=== PATIENT | female | born 1950 | race Caucasian/White ===

== ENCOUNTER → 2017-11-17 | Outpatient (CLI) | payer MEDICARE ==
[2017-11-17 16:15] LABS: Calcium 8.5 mg/dL (8.4-10.2)
[2017-11-17 16:32] LABS: T4, Free (Free Thyroxine) 1.81 ng/dL (0.78-2.19)
[2017-11-18 07:15] LABS: Vitamin D 25 Hydroxy 42.5 ng/mL (30.0-100.0)
[2017-11-18 08:15] LABS: Thyroglobulin <0.20 ng/mL (1.60-59.90)
== END ==
LOC: LABWHC1 15:37
PROVIDERS: ATTEND Internal Medicine Endocrinology, Diabetes & Metabolism
DX: C73 Malignant neoplasm of thyroid gland (principal); E89.0 Postprocedural hypothyroidism; E55.9 Vitamin D deficiency, unspecified; M89.9 Disorder of bone, unspecified
CPT/HCPCS: 36415; 82306; 82310; 84432; 84439; 84443; 86800

== ENCOUNTER → 2018-03-18 | Outpatient (CLI) | payer MEDICARE ==
[2018-03-18 19:20] LABS: T4, Free (Free Thyroxine) 1.6 ng/dL (0.80-1.80)
== END | disposition home or self-care (01) ==
LOC: LABWHC1 14:51
PROVIDERS: ATTEND Internal Medicine Endocrinology, Diabetes & Metabolism
DX: C73 Malignant neoplasm of thyroid gland (principal)
CPT/HCPCS: 36415; 84439; 84443

== ENCOUNTER → 2018-07-29 | Outpatient (CLI) | payer MEDICARE, OTHER ==
[2018-07-29 22:55] LABS: T4, Free (Free Thyroxine) 1.6 ng/dL (0.80-1.80)
[2018-07-30 00:35] LABS: Thyroglobulin <0.20 ng/mL (1.60-59.90)
== END | disposition home or self-care (01) ==
LOC: LABWHC1 15:10
PROVIDERS: ATTEND Internal Medicine Endocrinology, Diabetes & Metabolism
DX: E89.0 Postprocedural hypothyroidism (principal); E55.9 Vitamin D deficiency, unspecified; M79.10 Myalgia, unspecified site
CPT/HCPCS: 36415; 84432; 84439; 84443; 86800

== ENCOUNTER → 2019-01-24 | Outpatient (CLI) | payer MEDICARE, OTHER ==
[2019-01-24 19:14] LABS: T4, Free (Free Thyroxine) 1.3 ng/dL (0.80-1.80)
== END | disposition home or self-care (01) ==
LOC: LABWHC1 12:50
PROVIDERS: ATTEND Internal Medicine Endocrinology, Diabetes & Metabolism
DX: E89.0 Postprocedural hypothyroidism (principal)
CPT/HCPCS: 36415; 84439; 84443

== ENCOUNTER → 2019-01-25 | Day surgery (SDC) | payer MEDICARE, OTHER ==
[2019-01-25 14:11] VITALS: RESP 16; BMI 28.3
[2019-01-25 14:53] VITALS: BP 122/79; PULSE 76; TEMP 98.2
--- NOTE | 2019-01-25 15:33 | MM ---
EXAMINATION TYPE: MG stereo VAD BX RT DATE OF EXAM: 01/25/2019 COMPARISON: Outside mammogram December 28, 2018 and older studies. CLINICAL HISTORY: Abnormal mammogram. TECHNIQUE: Stereotactic guided core biopsy of right breast with clip placement and follow-up diagnost ic two-view mammogram.. FINDINGS: The procedure of stereotactic guided core biopsy was explained to the patient. Benefits, a lternatives, and risks were discussed. An informed consent was then obtained. [facility] pathway for biopsy was chosen. [facility] pathway was lateral approach. I performed the localization, then surgeon, Dr. Hudson performed the remainder of the procedure. A vacuum assisted b iopsy gun was used to obtain multiple core samples. The patient tolerated the procedure well without any immediate complication. The patient was kept in the radiology department for short stay after the procedure and then discharged home in stable condi tion. Targeted calcifications are identified in specimen mammogram. Post biopsy mammogram shows the clip to appear in satisfactory position relative to the targeted area of concern on the preprocedure images. Small postprocedure hematoma noted at the biopsy site. IMPRESSION: SUCCESSFUL, UNCOMPLICATED STEREOTACTIC GUIDED CORE BIOPSY OF AREA OF CONCERN IN THE RIGHT BREAST, FUL L PATHOLOGY RESULTS TO FOLLOW. Intermediate index of suspicion noted at time of procedure
--- NOTE | 2019-01-25 23:39 | OP ---
OPERATIVE REPORT DATE OF SERVICE: 01/25/2019 PREOPERATIVE DIAGNOSIS: Abnormal mammogram, right breast. POSTOPERATIVE DIAGNOSIS: Abnormal mammogram, right breast. PROCEDURE: Right stereotactic breast biopsy with marker placement. ANESTHESIA: 1% lidocaine with epinephrine. SURGEON: Dr. Fabi Hudson. SIGNS AND PROCEDURE: Breanna is a 69-year-old female who had a mammogram done showing a small cluster of calcifications, for which stereotactic biopsy had been recommended. She is taken to the stereotactic suite where the area of concern is identified and marked by the radiologist. The breast is then prepped. Local anesthetic is instilled into the skin and breast tissue. A small skin lenora is made. The needle was advanced to the appropriate depth. Pre-fire films were obtained. Post-fire films were not obtained, as the area of calcification was small and would be obscured by the tip of the needle. The needle was fired and then multiple vacuum-assisted automated cores were obtained. Mammography of the specimen did show that microcalcifications had been removed. The tissue marker is then placed and the needle and sleeve are withdrawn. Pressure was held. There was some persistent oozing from the skin. Therefore the skin was sutured using 3-0 silk suture. That appeared to control the bleeding, with no underlying hematoma developing. A dressing was applied. She was given aftercare instructions. I will see her in the office on for pathology. MMODL / IJN: [id number] /
== END | disposition home or self-care (01) ==
LOC: RADMAMWWP 01-24 14:27
PROVIDERS: ATTEND Surgery
DX: N62 Hypertrophy of breast (principal); R92.1 Mammographic calcification found on diagnostic imaging of breast
CPT/HCPCS: 88305; 19081; A4648

== ENCOUNTER → 2019-10-12 | Outpatient (CLI) | payer MEDICARE ==
--- NOTE | 2019-10-13 09:07 | MM ---
Reason for exam: follow-up at short interval from prior study. Last mammogram was performed 14 years and 10 months ago. History: Patient is postmenopausal and has history of high-risk lesion on a previous biopsy at age 50. Benign MG stereo VAD BX RT of the right breast, January 25, 2019. Benign excisional biopsy of the right breast, 1979. Physical Findings: Nurse did not find any significant physical abnormalities on exam. MG Diagnostic Mammo RT w CAD CC and MLO view(s) were taken of the right breast. Prior study comparison: January 25, 2019, mammogram. December 26, 2017, mammogram. The breast tissue is heterogeneously dense. This may lower the sensitivity of mammography. Previous mammotome biopsy in the right breast. There is chronic nodularity in the right breast. Asymmetric breast tissue on the right breast. No distinct lesion at additional views. These results were verbally communicated with the patient and result sheet given to the patient on 10/12/19. ASSESSMENT: Benign, BI-RAD 2 RECOMMENDATION: Routine screening mammogram of both breasts in 4 months. Back on schedule.
== END | disposition home or self-care (01) ==
LOC: RADMAMWWP 11:05
PROVIDERS: ATTEND Family Medicine
DX: R92.8 Other abnormal and inconclusive findings on diagnostic imaging of breast (principal)
CPT/HCPCS: 77065

== ENCOUNTER → 2020-01-31 | Outpatient (CLI) | payer MEDICARE ==
[2020-01-31 21:07] LABS: T4, Free (Free Thyroxine) 1.4 ng/dL (0.80-1.80)
== END | disposition home or self-care (01) ==
LOC: LABWHC1 14:12
PROVIDERS: ATTEND Internal Medicine
DX: C73 Malignant neoplasm of thyroid gland (principal); E89.0 Postprocedural hypothyroidism; E55.9 Vitamin D deficiency, unspecified
CPT/HCPCS: 36415; 82306; 84432; 84439; 84443; 86800

== ENCOUNTER → 2020-05-24 | Outpatient (CLI) | payer MEDICARE ==
--- NOTE | 2020-05-25 13:43 | MM ---
Reason for exam: screening (asymptomatic). Last mammogram was performed 7 months ago. History: Patient is postmenopausal and has history of high-risk lesion on a previous biopsy at age 50. Benign MG stereo VAD BX RT of the right breast, January 25, 2019. Benign excisional biopsy of the right breast, 1979. Physical Findings: A clinical breast exam by your physician is recommended on an annual basis and results should be correlated with mammographic findings. MG 3D Screening Mammo W/Cad Bilateral CC and MLO view(s) were taken. Prior study comparison: October 12, 2019, right breast MG diagnostic mammo RT w CAD. January 25, 2019, mammogram. The breast tissue is heterogeneously dense. This may lower the sensitivity of mammography. Finding: There is an obscured oval mass in the upper quadrant of the left breast MLO 26/52. Previous mammotome biopsy in the right breast. There is a chronic nodularity in the left breast. New finding and more defined since October 12, 2019 and January 25, 2019. ASSESSMENT: Incomplete: need additional imaging evaluation, BI-RAD 0 RECOMMENDATION: Special view mammogram of the left breast. If lesion persists on supplemental views, image directed ultrasound is recommended. [facility] will attempt to contact patient to return for supplemental views and ultrasound if indicated.
== END | disposition home or self-care (01) ==
LOC: RADMAMWWP 13:55
PROVIDERS: ATTEND Family Medicine
DX: Z12.31 Encounter for screening mammogram for malignant neoplasm of breast (principal)
CPT/HCPCS: 77063; 77067

== ENCOUNTER → 2020-05-24 | Outpatient (CLI) | payer MEDICARE ==
--- NOTE | 2020-05-24 14:15 | CT ---
EXAMINATION TYPE: CT abdomen pelvis w con DATE OF EXAM: 05/24/2020 COMPARISON: NONE HISTORY: 70-year-old female Generalized abdominal pain. Elevated lipase and amylase. TECHNIQUE: Contiguous axial scanning of the abdomen and pelvis following administration of 100 ml Iso zully 300 IV contrast. Delayed images through the kidneys and coronal/sagittal reconstructions perform ed. CT DLP: 693.4 mGycm Automated exposure control for dose reduction was used. FINDINGS: Heart normal size without pericardial effusion. Strandy atelectasis inferior lingula. No pleural effu michael. Moderate sized hernia. Numerous suspicious hypodense liver lesions measuring up to 2.1 cm. Fluid attenuating lesion at the l eft hepatic dome measures 1.8 cm and is suspected to represent a cyst. Numerous additional lesions or suspicious. Background heterogeneous enhancement of the liver. No abnormal gallbladder distention. Adrenal glands, spleen appear within normal limits. Extra renal pelvis on the right. Medial right renal cyst measures 2.8 cm. Additional scattered smalle r hypodensities in the left kidney measuring up to 8 mm are too small for accurate CT characterizatio n, likely tiny cysts. There is a poorly defined mass centered within the head of the pancreas measuring approximately 3.5 c m wide by 3.1 cm AP by 5.3 cm craniocaudal, refer to axial image 24 and coronal image 37. There is co rresponding atrophy of the more proximal pancreas with dilatation of the main pancreatic duct. The lower main portal vein and portal venous confluence is encased and extrinsically compressed. The mass abuts the anterior margin of the common hepatic artery. No dilated small bowel, free fluid, or free air. Ill-defined soft tissue in the left periaortic region measures 2.5 x 1.1 cm just below the level of t he left renal artery, axial image 32. Some stranding edema tracks down the retroperitoneum. Normal appendix. Moderate stool in the right side of the abdomen. Sigmoid diverticulosis without sheree colonic inflammatory change. Bladder is urine distended. Uterus surgically absent. Neither ovary is visualized. No abnormal fluid collection the pelvis or pelvic lymphadenopathy. Bones: Mild degenerative change of the hips. Degenerated levoconvex curvature of the lumbar spine. Va scular disease. Grade 1 retrolisthesis L2-L3 and L3-L4. IMPRESSION: 1. PANCREATIC HEAD MASS SUGGESTING ADENOCARCINOMA ESTIMATED TO MEASURE 5.3 CM. THERE IS EXTRINSIC COM PRESSION NARROWING THE LOWER MAIN PORTAL VEIN AND PORTAL VENOUS CONFLUENCE SECONDARY TO TUMOR ENCASEM ENT. THE MASS ABUTS THE ANTERIOR MARGIN OF THE COMMON HEPATIC ARTERY WITHOUT EVIDENT ARTERIAL ENCASEM ENT. 2. METASTATIC DISEASE CHARACTERIZED BY MULTIPLE HYPOVASCULAR HEPATIC LESIONS MEASURING UP TO 2.1 CM. SUSPICIOUS ILL-DEFINED SOFT TISSUE/LYMPHADENOPATHY IN THE LEFT PERIAORTIC REGION MEASURES 2.5 X 1.1 C M. 3. MODERATE-SIZED HIATAL HERNIA, SIGMOID DIVERTICULOSIS, AND DEGENERATED LEVOCONVEX SCOLIOTIC CURVATU RE OF THE LUMBAR SPINE.
== END | disposition home or self-care (01) ==
LOC: RADCTMAIN 11:39
PROVIDERS: ATTEND Family Medicine
DX: K86.89 Other specified diseases of pancreas (principal); K76.89 Other specified diseases of liver; K57.30 Diverticulosis of large intestine without perforation or abscess without bleeding; K44.9 Diaphragmatic hernia without obstruction or gangrene; C78.7 Secondary malignant neoplasm of liver and intrahepatic bile duct
CPT/HCPCS: 74177; Q9967 ×2

== ENCOUNTER → 2020-05-30 | Day surgery (SDC) | payer MEDICARE ==
[2020-05-30 08:38] VITALS: RESP 16; TEMP 97.8
[2020-05-30 08:44] LABS: Mean Platelet Volume 6.9; Platelet Count 317 k/uL (150-450)
[2020-05-30 08:57] LABS: INR 0.9 (<1.2); Prothrombin Time 10.1 sec (9.0-12.0)
--- NOTE | 2020-05-30 13:18 | US ---
EXAMINATION TYPE: US biopsy liver DATE OF EXAM: 05/30/2020 HISTORY: Multiple liver masses, pancreatic mass. FINDINGS: Maximal barrier technique was utilized. Hand hygiene achieved with soap and water and alco hol-based hand rub. The skin overlying a suitable path to the patient's right lobe liver mass was loc alized with ultrasound and the overlying skin prepped and draped. Ultrasound was utilized with steri le technique. Lidocaine was used for local anesthesia. A skin lenora was made with a scalpel. An 18- gauge needle was advanced under direct ultrasound guidance and core specimen obtained of the mass. S ghanshyamn submitted in formalin to Pathology. Following the procedure, hemostasis achieved and the pat ient is discharged in stable condition without complication. IMPRESSION:STATUS POST ULTRASOUND GUIDED CORE BIOPSY OF right lobe liver MASS, PATHOLOGY IS PENDING. THIS PROCEDURE IS PERFORMED BY THE UNDERSIGNED.
[2020-05-30 13:35] VITALS: BP 117/72; PULSE 86
== END ==
LOC: RADPROMAIN 07:54
PROVIDERS: ATTEND Internal Medicine Hematology & Oncology
DX: C78.7 Secondary malignant neoplasm of liver and intrahepatic bile duct (principal)
CPT/HCPCS: 36415; 47000; 76942; 85049; 85610; 88307; 88341; 88342

== ENCOUNTER → 2020-06-07 | Outpatient (CLI) | payer MEDICARE ==
[2020-06-07 17:37] LABS: African American GFR (CKD) >90 (>60 ml/min/1.73 sqM); Blood Urea Nitrogen 13 mg/dL (7-17); Non-African American GFR(CKD) 90 (>60 ml/min/1.73 sqM)
--- NOTE | 2020-06-08 07:31 | CT ---
EXAMINATION TYPE: CT chest w con DATE OF EXAM: 06/07/2020 COMPARISON: CT abdomen and pelvis May 24, 2020 HISTORY: Recent diagnosis of pancreatic cancer. CT DLP: 218.2 mGycm. Automated Exposure Control for Dose Reduction was Utilized. TECHNIQUE: CT scan of the thorax is performed following with IV Contrast, patient injected with 100m l mL of Isovue 300. FINDINGS: LUNGS: Mild bibasilar linear scarring and/or atelectasis just above diaphragm. No suspicious focal pu lmonary nodules or masses. Mild scattered parenchymal scarring in the right upper lung periphery. No pleural effusion or pneumothorax seen bilaterally. MEDIASTINUM: There is a single suspicious 1.9 x 1.4 cm soft tissue nodule anterior to the pulmonary a rtery and ascending aorta echo much 25.. No pericardial effusion is seen. Descending aorta measure s up to 3.4 cm in diameter. Thyroid small in size or atrophic, not well seen. No cardiomegaly. OTHER: Small slight hiatal hernia redemonstrated. Visualized liver is enlarged with heterogeneous hyp odense masses consistent with known metastatic disease. Enhancing poorly defined pancreatic head mass or neoplasm causing pancreatic ductal dilatation is also redemonstrated. Underlying scoliosis in the thoracic spine is present. Loss of normal thoracic curvature on sagittal images. IMPRESSION: Single suspicious 1.9 x 1.4 cm Mediastinal mass could reflect metastatic lesion. No suspi cious pulmonary nodules or masses. Redemonstration of known pancreatic neoplasm with hepatic metasta tic disease.
== END | disposition home or self-care (01) ==
LOC: RADCTMAIN 17:08
PROVIDERS: ATTEND Internal Medicine Hematology & Oncology
DX: C25.9 Malignant neoplasm of pancreas, unspecified (principal); R68.89 Other general symptoms and signs; C78.7 Secondary malignant neoplasm of liver and intrahepatic bile duct; R22.2 Localized swelling, mass and lump, trunk
CPT/HCPCS: 82565; 84520; 71260; 36415; Q9967

== ENCOUNTER → 2020-07-18 | Outpatient (CLI) | payer MEDICARE ==
--- NOTE | 2020-07-18 15:17 | MR ---
EXAMINATION TYPE: MR brain wo/w con DATE OF EXAM: 07/18/2020 COMPARISON: NONE HISTORY: Pancreatic cancer, visual disturbances, blurred vision TECHNIQUE: Multiplanar, multisequence images of the brain and brainstem is performed without and with IV contras t, utilizing 7 mL intravenous Gadavist . FINDINGS: Diffusion weighted images demonstrate no evidence of a recent infarct or other diffusion ab normality. There is mild ventricular and sulcal prominence. Occasional T2 hyperintense focus with ro ughly 5-10 tiny scattered lesions and additional T2 hyperintensity periventricular level Midline structures demonstrate normal morphology. The craniocervical junction appears within normal limits. Post contrast images demonstrate no abnormal enhancement. The dural venous sinuses appear pa tent. The visualized sinuses are clear and the globes are intact. IMPRESSION: Mild diffuse cerebral atrophy and mild to minimal chronic small vessel ischemic change. N o enhancing masses to suggest metastatic disease to the brain identified.
== END | disposition home or self-care (01) ==
LOC: RADMRIMAIN 13:54
PROVIDERS: ATTEND Internal Medicine Hematology & Oncology
DX: G31.9 Degenerative disease of nervous system, unspecified (principal); I67.82 Cerebral ischemia; C25.0 Malignant neoplasm of head of pancreas
CPT/HCPCS: 70553; A9585

== ENCOUNTER → 2020-07-26 | Outpatient (CLI) | payer MEDICARE ==
--- NOTE | 2020-07-26 12:45 | CT ---
EXAMINATION TYPE: CT abdomen pelvis w con DATE OF EXAM: 07/26/2020 COMPARISON: HISTORY: 70-year-old female C25.0, Follow up pancreatic cancer. TECHNIQUE: Contiguous axial scanning of the abdomen and pelvis following administration of 100 ml Iso zully 370 IV contrast. Delayed images through the kidneys and coronal/sagittal reconstructions perform ed. CT DLP: 1796 mGycm Automated exposure control for dose reduction was used. FINDINGS: Heart is normal size without pericardial effusion. Partially visualized soft tissue density in the pr evascular space measuring 1.9 cm. Pvdie-gf-sddpfibj left effusion is new. Left basilar atelectasis. There is heterogeneous enhancement of the liver likely reflecting cavernous transformation of the thong n portal vein. Increasing number of numerous liver lesions. The previously seen lesions are either stable or increas ing in size. For example, within the right hepatic dome measuring 2.3 cm versus 2.1 cm, previously. M easuring 3.2 cm and the left liver lobe versus 1.4 cm, previously. Gallbladder mostly collapsed. Adrenal glands and spleen within normal limits. 2.6 cm cyst medial left kidney and extrarenal pelvis on the right. New moderate to severe left-sided hydronephrosis. Delayed excretion of contrast from the left kidney. This seems to be abrupt cut off of the proximal ureter with soft tissue density contiguous with the left periaortic region and left psoas major. Redemonstrated atrophy of the pancreatic body and tail with dilatation of the main pancreatic duct. V ague hypodensity within the pancreatic head estimated at 2.6 x 1.5 cm on coronal image 38 versus 5.3 x 3.5 cm on 05/24/2020 on coronal image 37. No dilated small bowel or free air. There is some edema tracking down the right side of the retroperi toneum. There is also circumferential wall thickening at the ascending colon up to the splenic flexure. Sigmo id diverticulosis. Bladder distended. Uterus surgically absent. Neither ovary clearly delineated. Mod erate pelvic ascites is new. Bones: Mild degenerative change of the hips. Degenerative change right SI joint. Degenerated levoconv ex scoliosis of the lumbar spine. IMPRESSION: 1. THE PATIENT'S VAGUE PANCREATIC HEAD MASS IS ESTIMATED SMALLER AT 2.6 X 1.5 CM (CORONAL IMAGE 38) V ERSUS 5.3 X 3.5 CM ON 05/24/2020 (CORONAL IMAGE 37). 2. REDEMONSTRATED NUMEROUS HEPATIC METASTASES. NEW LESIONS ARE SEEN. PREVIOUS LESIONS ARE EITHER STAB LE OR SLIGHTLY LARGER. 3. 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 THIS RESULTS IN HETEROGENEOUS ENHANCEMENT OF THE LIVER. 4. NEW MODERATE TO SEVERE LEFT-SIDED HYDRONEPHROSIS WITH OBSTRUCTIVE UROPATHY. THERE SEEMS TO BE ABRU PT CUT OFF AT THE PROXIMAL LEFT URETER WITH SOFT TISSUE DENSITY CONTIGUOUS WITH THE LEFT PERIAORTIC R EGION AND LEFT PSOAS MAJOR, POSSIBLY RELATING TO PROGRESSION IN THE RETROPERITONEAL METASTASES HERE. RECOMMEND UROLOGY CONSULTATION. 5. PARTIALLY VISUALIZED 1.9 CM NODULAR SOFT TISSUE IN THE PREVASCULAR SPACE OF THE ANTERIOR MEDIASTIN UM. MEDIASTINAL LYMPHADENOPATHY NOT EXCLUDED. THIS REGION WAS NOT PREVIOUSLY INCLUDED IN THE FIELD-OF -VIEW. 6. CIRCUMFERENTIAL WALL THICKENING OF THE ASCENDING COLON. CORRELATE FOR NONSPECIFIC COLITIS. 7. NEW SMALL TO MODERATE LEFT EFFUSION. NEW MODERATE PELVIC ASCITES.
== END ==
LOC: RADPROMAIN 09:20
PROVIDERS: ATTEND Internal Medicine Hematology & Oncology
DX: K86.9 Disease of pancreas, unspecified (principal); N13.30 Unspecified hydronephrosis; N39.9 Disorder of urinary system, unspecified; R18.8 Other ascites; J90 Pleural effusion, not elsewhere classified
CPT/HCPCS: 82565; 84520; 74177; J1642; Q9967

== ENCOUNTER → 2020-08-13 | Outpatient (CLI) | payer MEDICARE ==
--- NOTE | 2020-08-13 13:43 | US ---
EXAMINATION TYPE: US venous doppler duplex LE DATE OF EXAM: 08/13/2020 1:36 PM COMPARISON: NONE CLINICAL HISTORY: R22.42, R22.41 Bilateral leg swelling, shortness of breath. SIDE PERFORMED: Bilateral TECHNIQUE: The lower extremity deep venous system is examined utilizing real time linear array sonog rosario with graded compression, doppler sonography and color-flow sonography. VESSELS IMAGED: Common Femoral Vein Deep Femoral Vein Greater Saphenous Vein * Femoral Vein Popliteal Vein Small Saphenous Vein * Proximal Calf Veins (* superficial vessels) Right Leg: Negative for DVT Left Leg: Negative for DVT Preliminary results given to Miguelangel. IMPRESSION: Grayscale, color doppler, spectral doppler imaging performed of the deep veins of the lo wer extremities. There is normal flow, compressibility, vascular waveforms.
--- NOTE | 2020-08-13 14:06 | CT ---
EXAMINATION TYPE: CT angio chest DATE OF EXAM: 08/13/2020 COMPARISON: 06/07/2020 HISTORY: Shortness of breath in the past week CT DLP: 191.2 mGycm CONTRAST: CT chest with contrast and 3D reconstruction with MIP imaging is performed with IV Contrast, patient injected with 100 mL of Isovue 370. Contrast-enhanced CT of the chest was performed through the course of the pulmonary arteries with ralph g and mediastinal window settings submitted. 3D reconstruction with MIP imaging was also performed. PULMONARY ARTERIES: There are a few scattered filling defects are noted within the secondary and tert iary branches of the right lung right upper lobe and right lower lobe as well as diffuse tiny scatter ed filling defects within the second and third order branches left lower lobe. No central embolus see n. No saddle component noted. LUNGS: Left basilar pleural effusion. Right lower lobe atelectasis infiltrate. MEDIASTINUM: Thoracic aorta is of normal caliber,however, evaluation is limited given timing of the contrast bolus. If there is concern for thoracic aortic pathology consider JANINE. Correlate clinicall y . The heart is enlarged. No evidence for mediastinal mass. No mediastinal lymph nodes greater than 1cm. HILAR STRUCTURES: No evidence for mass. No hilar lymph nodes greater than 1 cm. UPPER ABDOMEN: Upper abdominal ascites is noted. IMPRESSION: 1. Mild pulmonary embolism is noted bilaterally. No evidence for large central component or saddle e mbolus. 2. Left basilar pleural effusion and basilar atelectatic change.
== END | disposition home or self-care (01) ==
LOC: RADPROMAIN 12:36
PROVIDERS: ATTEND Internal Medicine Hematology & Oncology
DX: I26.99 Other pulmonary embolism without acute cor pulmonale (principal); J90 Pleural effusion, not elsewhere classified
CPT/HCPCS: 82565; 84520; 93970; 71275; J1642; Q9967

== ENCOUNTER → 2020-09-18 | Outpatient (CLI) | payer MEDICARE ==
--- NOTE | 2020-09-18 21:39 | CT ---
EXAMINATION TYPE: CT ChestAbdPelvis w con DATE OF EXAM: 09/18/2020 INDICATION: Cancer markers elevated. Current treatment for pancreatic cancer. COMPARISON: 08/13/2020 CT DLP: 912.2 mGycm CONTRAST: Performed with Oral Contrast and with IV Contrast, patient injected with 100 mL of Isovue M300. TECHNIQUE: Axial images at 5 mm thick sections. Reconstructed images in the coronal plane. Delayed images through the kidneys. FINDINGS: CT CHEST: Portion of the thyroid visualized is normal. No suspicious lung nodules or focal infiltrates are present. There is a small left pleural effusion s lightly diminished from the comparison. No enlarged mediastinal or hilar adenopathy is evident. The ascending aorta diameter at the level of the main pulmonary artery is 3.5 cm. The main pulmonary artery diameter at the bifurcation is 2.[address] ABDOMEN: Ascites is present Liver: Multiple hypodensities are scattered throughout the liver. These are in the left and right lob es of the liver. The largest in the right upper lobe liver measures 3 cm. Spleen: Normal Pancreas: Pancreatic head appears similar to the comparison. Pancreatic duct dilatation is present. P ancreas appears atrophic. Adrenal glands: The adrenal glands are normal. Gallbladder: Normal Kidneys: Large complex cyst at the inferior pole left kidney. This measures 5.6 cm. Consider addition al workup. No hydronephrosis is present. No cysts are present. Delayed images were obtained throug h the kidneys, which remain unremarkable. Aorta: Vascular calcification is within the aorta. Periaortic adenopathy is less well-visualized. Inferior vena cava: Normal. CT PELVIS: Loops of bowel within the abdomen and pelvis are normal. There are loops of bowel which are incom pletely distended or lack oral contrast limiting their evaluation. Appendix: Not identified. No suspicious inflammatory changes are evident. Urinary bladder: Normal. Genitourinary structures: Uterus and ovaries are not identified. Osseous structures: No suspicious lytic or sclerotic lesions. Scoliosis present. Degenerative disc ch anges are present. IMPRESSIONS: 1. Multiple hepatic metastatic lesions. These appear larger than the comparison. 2. Complex cyst and/or hydronephrosis left kidney. 3. Periaortic soft tissue less well visualized on the current examination. This however may be partia lly obscured by the complex cyst on the left kidney. 4. Diminished small left pleural effusion. 5. Diffuse ascites appears increased from comparison studies.
== END | disposition home or self-care (01) ==
LOC: RADPROMAIN 10:49
PROVIDERS: ATTEND Internal Medicine Hematology & Oncology
DX: C78.7 Secondary malignant neoplasm of liver and intrahepatic bile duct (principal); C25.9 Malignant neoplasm of pancreas, unspecified; J90 Pleural effusion, not elsewhere classified; R18.8 Other ascites
CPT/HCPCS: 82565; 84520; 71260; 74177; Q9967 ×2

== ENCOUNTER 2020-11-05 16:32 | Inpatient (IN) | payer MEDICARE ==
[2020-11-05] MEDS ORDERED: SODIUM CHLORIDE 0.9% 1,000 ML IV STA (18:33)
[2020-11-05] MEDS ORDERED: SODIUM CHLORIDE 0.9% 500 ML IV STA (18:56)
[2020-11-05 18:58] LABS: Anisocytosis Slight; Basophils % (A) 0 %; Eosinophils % (A) 0 %; HCT 40.4 % (34.0-46.0); HGB 13.2 gm/dL (11.4-16.0); Lymphocytes # (A) 0.4 k/uL (1.0-4.8); Lymphocytes % (A) 3 %; MCHC 32.7 g/dL (31.0-37.0); Macrocytosis Moderate; Mean Platelet Volume 7.9; Monocytes # (A) 0.9 k/uL (0-1.0); Monocytes % (A) 6 %; Neutrophils # (A) 14.4 k/uL (1.3-7.7); Neutrophils % (A) 90 %; Platelet Count 183 k/uL (150-450); RDW 18.7 % (11.5-15.5); WBC 15.9 k/uL (3.8-10.6)
--- NOTE | 2020-11-05 19:03 | ED ---
Recheck HPI - General Chief Complaint: Recheck/Abnormal Lab/Rx Stated Complaint: Jaundice Time Seen by Provider: 11/05/20 18:33 Source: patient, family Mode of arrival: wheelchair Limitations: no limitations - History of Present Illness Initial Comments: Breanna the very pleasant 70-year-old female who is brought to the ER today by private vehicle for evaluation of jaundice, nausea and vomiting. Patient has a history of metastatic pancreatic cancer that was diagnosed earlier this year. She underwent chemotherapy and had failure of therapy with worsening metastases during treatment. She was supposed to enroll in a clinical trial through her monocytes however she is calm progressively worse over the past week, she's developed jaundice, worsening abdominal pain and since last night nausea and vomiting. Today she was too weak to attend her scheduled outpatient MRI to enroll in the clinical trial therefore family brought her to the ER for further evaluation. Daughter stated talk with the primary oncologist Dr. Davenport earlier who did express concern that the worsening metastases and worsening of the patient's condition is indicative that she will not be a candidate for the trial and that she would be a better candidate for hospice at this time. - Related Data Home Medications Medication Instructions Recorded Confirmed Ergocalciferol (Vitamin D2) 50,000 unit PO Q7D 01/24/19 11/05/20 [Vitamin D2] Sertraline [Zoloft] 25 mg PO DAILY 01/24/19 11/05/20 ALPRAZolam [Xanax] 0.5 mg PO TID 05/28/20 11/05/20 Apixaban [Eliquis] 5 mg PO BID 11/05/20 11/05/20 Levothyroxine Sodium [Synthroid] 125 mcg PO DAILY 11/05/20 11/05/20 Lipase/Protease/Amylase [Creon Dr 1 cap PO TID-W/MEALS 11/05/20 11/05/20 12,000 Units Capsule] Prochlorperazine [Compazine] 10 mg PO Q6H PRN 11/05/20 11/05/20 Allergies Allergy/AdvReac Type Severity Reaction Status Date / Time No Known Allergies Allergy Verified 11/05/20 16:55 Review of Systems ROS Statement: Those systems with pertinent positive or pertinent negative responses have been documented in the HPI. ROS Other: All systems not noted in ROS Statement are negative. Past Medical History Past Medical History: Cancer, Musculoskeletal Disorder, Osteoarthritis (OA), Thyroid Disorder Additional Past Medical History / Comment(s): THYROID CANCER, BACK PAIN., HX OF VARICOSE VEINS. PT STATES SURGERY RESCHEDULED BECAUSE SHE HAD A COLD & COUGH AND UTI AND STATES SHE IS WELL NOW, NO OTHER CHANGES TO HEALTH HISTORY. History of Any Multi-Drug Resistant Organisms: None Reported Past Surgical History: Bladder Surgery, Hysterectomy, Joint Replacement, Tonsillectomy Additional Past Surgical History / Comment(s): BLADDER SUSPENSION, THYROIDECTOMY, ANDREW CATARACTS, TOTAL RIGHT KNEE. Past Anesthesia/Blood Transfusion Reactions: Postoperative Nausea & Vomiting (PONV) Additional Past Anesthesia/Blood Transfusion Reaction / Comment(s): MOTHER AND DAUGHTERS ALSO HAVE PONV Past Psychological History: No Psychological Hx Reported Smoking Status: Never smoker Past Alcohol Use History: Occasional Past Drug Use History: None Reported - Past Family History Mother Family Medical History: No Reported History General Exam - General Exam Comments Initial Comments: Physical Exam GENERAL: Chronically ill-appearing, jaundice HENT: Normocephalic, Atraumatic. EYES: Scleral icterus PULMONARY: Unlabored respirations. No audible rales rhonchi or wheezing was noted. CARDIOVASCULAR: There is a regular rate and rhythm without any murmurs gallops or rubs. ABDOMEN: Soft but distended with fluid wave SKIN: Jaundice : Deferred NEUROLOGIC: Patient is alert and oriented x3. Moving all extremities spontaneously MUSCULOSKELETAL: Generalized atrophy PSYCHIATRIC: Appropriate situational anxiety and depression Limitations: no limitations Course Vital Signs 11/05/20 16:56 Temperature 97.4 F L Pulse Rate 96 Respiratory 18 Rate Blood Pressure 86/60 O2 Sat by Pulse 97 Oximetry Medical Decision Making - Medical Decision Making The patient was seen and evaluated, history is obtained from the patient as well as her daughters at bedside and review of medical record On exam this is a ill-appearing 70-year-old female with found jaundice Labs were obtained and I did offer a repeat CT however once labs resulted patient said hepatorenal syndrome Daughter approached me and advised that they are aware of the mother needs hospice however the daughters have not been able to breech the subject with her and would like me to discuss it with her Did discuss with the patient with her daughters at bedside that her liver and kidneys are now shutting down that she is dehydrated has electrolytes abnormalities I did offer repeat CT and discussed that with her acutely worsening condition. At this time patient doesn't want to pursue any further workup for aggressive treatment. Patient is agreeable to plan for admission for fluid resuscitation and electrolyte repletion however recognizes her condition and is agreeable to meeting with hospice. Patient does confirm that she is DO N OT RESUSCITATE. Dr. Pritchard of the [facility] accepts the admission - Lab Data Result diagrams: 11/05/20 18:46 11/05/20 18:46 Lab Results 11/05/20 11/05/20 11/05/20 Range/Units 18:46 18:46 18:46 WBC 15.9 H (3.8-10.6) k/uL RBC 4.00 (3.80-5.40) m/uL Hgb 13.2 (11.4-16.0) gm/dL Hct 40.4 (34.0-46.0) % MCV 101.0 H (80.0-100.0) fL MCH 33.0 (25.0-35.0) pg MCHC 32.7 (31.0-37.0) g/dL RDW 18.7 H (11.5-15.5) % Plt Count 183 (150-450) k/uL MPV 7.9 Neutrophils % 90 % Lymphocytes % 3 % Monocytes % 6 % Eosinophils % 0 % Basophils % 0 % Neutrophils # 14.4 H (1.3-7.7) k/uL Lymphocytes # 0.4 L (1.0-4.8) k/uL Monocytes # 0.9 (0-1.0) k/uL Eosinophils # 0.0 (0-0.7) k/uL Basophils # 0.0 (0-0.2) k/uL Anisocytosis Slight Macrocytosis Moderate PT 43.8 H (9.0-12.0) sec INR 4.5 H (<1.2) APTT 33.2 H (22.0-30.0) sec Sodium 125 L (137-145) mmol/L Potassium 3.7 (3.5-5.1) mmol/L Chloride 94 L (98-107) mmol/L Carbon Dioxide 19 L (22-30) mmol/L Anion Gap 12 mmol/L BUN 57 H (7-17) mg/dL Creatinine 1.80 H (0.52-1.04) mg/dL Est GFR (CKD-EPI)AfAm 32 (>60 ml/min/1.73 sqM) Est GFR (CKD-EPI)NonAf 28 (>60 ml/min/1.73 sqM) Glucose 130 H (74-99) mg/dL Plasma Lactic Acid Jagdish (0.7-2.0) mmol/L Calcium 7.6 L (8.4-10.2) mg/dL Total Bilirubin 11.6 H (0.2-1.3) mg/dL AST 212 H (14-36) U/L ALT 81 H (4-34) U/L Alkaline Phosphatase 938 H (38-126) U/L Creatine Kinase 46 (30-135) U/L Total Protein 6.3 (6.3-8.2) g/dL Albumin 2.2 L (3.5-5.0) g/dL Amylase 83 (30-110) U/L Lipase 342 H (23-300) U/L Blood Type Blood Type Recheck Bld Type Recheck Status Antibody Screen Spec Expiration Date 11/05/20 11/05/20 Range/Units 18:46 18:46 WBC (3.8-10.6) k/uL RBC (3.80-5.40) m/uL Hgb (11.4-16.0) gm/dL Hct (34.0-46.0) % MCV (80.0-100.0) fL MCH (25.0-35.0) pg MCHC (31.0-37.0) g/dL RDW (11.5-15.5) % Plt Count (150-450) k/uL MPV Neutrophils % % Lymphocytes % % Monocytes % % Eosinophils % % Basophils % % Neutrophils # (1.3-7.7) k/uL Lymphocytes # (1.0-4.8) k/uL Monocytes # (0-1.0) k/uL Eosinophils # (0-0.7) k/uL Basophils # (0-0.2) k/uL Anisocytosis Macrocytosis PT (9.0-12.0) sec INR (<1.2) APTT (22.0-30.0) sec Sodium (137-145) mmol/L Potassium (3.5-5.1) mmol/L Chloride (98-107) mmol/L Carbon Dioxide (22-30) mmol/L Anion Gap mmol/L BUN (7-17) mg/dL Creatinine (0.52-1.04) mg/dL Est GFR (CKD-EPI)AfAm (>60 ml/min/1.73 sqM) Est GFR (CKD-EPI)NonAf (>60 ml/min/1.73 sqM) Glucose (74-99) mg/dL Plasma Lactic Acid Jagdish 3.4 H* (0.7-2.0) mmol/L Calcium (8.4-10.2) mg/dL Total Bilirubin (0.2-1.3) mg/dL AST (14-36) U/L ALT (4-34) U/L Alkaline Phosphatase (38-126) U/L Creatine Kinase (30-135) U/L Total Protein (6.3-8.2) g/dL Albumin (3.5-5.0) g/dL Amylase (30-110) U/L Lipase (23-300) U/L Blood Type B Positive Blood Type Recheck No Previous Record Bld Type Recheck Status CABO Indicated Antibody Screen NEGATIVE Spec Expiration Date 11/08/20202345 Disposition Clinical Impression: Malignant neoplasm of pancreas metastatic to liver, Liver failure, Acute kidney injury, Admission for hospice care Disposition: ADMITTED IP TO THIS HOSP Condition: Critical Referrals: Neena Landeros MD [Primary Care Provider] - 1-2 days
[2020-11-05 19:23] LABS: INR 4.5 (<1.2); Partial Thromboplastin Time 33.2 sec (22.0-30.0); Prothrombin Time 43.8 sec (9.0-12.0)
[2020-11-05 19:58] LABS: Albumin 2.2 g/dL (3.5-5.0); Calcium 7.6 mg/dL (8.4-10.2); Potassium 3.7 mmol/L (3.5-5.1); Total Bilirubin 11.6 mg/dL (0.2-1.3); Total Protein 6.3 g/dL (6.3-8.2)
[2020-11-05] MEDS ORDERED: NALOXONE 0.4 MG/ML 1 ML VIAL IV PRN (20:44)
[2020-11-05] MEDS ORDERED: ONDANSETRON 4 MG/2 ML VIAL IVP PRN (20:44)
[2020-11-05] MEDS: SODIUM CHLORIDE 0.9% 1,000 ML IV SCH (22:25)
[2020-11-05] MEDS ORDERED: ALPRAZolam 0.5 MG TAB PO PRN (23:36)
[2020-11-05] MEDS ORDERED: MORPHINE SULFATE 2 MG/ML SYRINGE IVP PRN (23:48)
--- NOTE | 2020-11-05 23:48 | P.HPIM ---
History of Present Illness H&P Date: 11/05/20 Chief Complaint: Jaundice 70-year-old female with history of thyroid cancer, hypothyroid Patient recently diagnosed with metastatic pancreatic cancer back in May 2020 she receives chemotherapy after that however upon follow-up with imaging cancer to progress and patient was not showing any signs of improvement. Today she is coming in for deep jaundice and feeling tired. She is accompanied by both her daughters. After getting initial blood work in talking to the p atient seems like they're interested in hospice care. She was trying to enroll in the trial medication for treatment however she did not qualify. Her blood work today showed leukocytosis no anemia INR 4.5 elevated bilirubin of 11.6 elevated AST and he'll T lactic acid of 3.4 patient denies any active bleeding Electrolytes showed acidosis with acute kidney injury and hyponatremia I reviewed imaging that was done this year MRI of the brain in July 2020 showed no brain metastases September 2020 CT of the abdomen showed multiple hepatic metastatic lesions ascites left hydro-process/cyst Patient currently denies any abdominal pain trouble breathing or chest pain denies any dizziness or lightheadedness she is only complaining of nausea and poor by mouth intake she is also constipated and passes bowel movement once every couple days Patient and her daughters are very interested in talking to hospice care and hoping that she ca go home tomorrow with hospice She had paracentesis done about 10 days ago and liters of fluid was drained Review of Systems Pertinent positives as noted in HPI. All other systems were reviewed and are negative Past Medical History Past Medical History: Cancer, Musculoskeletal Disorder, Osteoarthritis (OA), Thyroid Disorder Additional Past Medical History / Comment(s): THYROID CANCER, BACK PAIN., HX OF VARICOSE VEINS. PT STATES SURGERY RESCHEDULED BECAUSE SHE HAD A COLD & COUGH AND UTI AND STATES SHE IS WELL NOW, NO OTHER CHANGES TO HEALTH HISTORY. History of Any Multi-Drug Resistant Organisms: None Reported Past Surgical History: Bladder Surgery, Hysterectomy, Joint Replacement, Tonsillectomy Additional Past Surgical History / Comment(s): BLADDER SUSPENSION, THYROIDECTOMY, ANDREW CATARACTS, TOTAL RIGHT KNEE. Past Anesthesia/Blood Transfusion Reactions: Postoperative Nausea & Vomiting (PONV) Additional Past Anesthesia/Blood Transfusion Reaction / Comment(s): MOTHER AND DAUGHTERS ALSO HAVE PONV Past Psychological History: No Psychological Hx Reported Smoking Status: Never smoker Past Alcohol Use History: Occasional Past Drug Use History: None Reported - Past Family History Mother Additional Family Medical History / Comment(s): Family history of pancreatic cancer in her brother Medications and Allergies Home Medications Medication Instructions Recorded Confirmed Type Ergocalciferol (Vitamin D2) 50,000 unit PO Q7D 01/24/19 11/05/20 History [Vitamin D2] Sertraline [Zoloft] 25 mg PO DAILY 01/24/19 11/05/20 History ALPRAZolam [Xanax] 0.5 mg PO TID 05/28/20 11/05/20 History Apixaban [Eliquis] 5 mg PO BID 11/05/20 11/05/20 History Levothyroxine Sodium [Synthroid] 125 mcg PO DAILY 11/05/20 11/05/20 History Lipase/Protease/Amylase [Creon Dr 1 cap PO TID-W/MEALS 11/05/20 11/05/20 History 12,000 Units Capsule] Prochlorperazine [Compazine] 10 mg PO Q6H PRN 11/05/20 11/05/20 History Allergies Allergy/AdvReac Type Severity Reaction Status Date / Time No Known Allergies Allergy Verified 11/05/20 16:55 Physical Exam Vitals: Vital Signs Temp Pulse Resp BP Pulse Ox 11/05/20 16:56 97.4 F L 96 18 86/60 97 Intake and Output 11/05/20 11/05/20 11/05/20 06:59 14:59 22:59 Other: Weight 70.76 kg Constitutional: No acute distress, conversant, pleasant Eyes: Deep jaundiced sclerae, moist conjunctiva, Pupils equal round reactive to light ENMT: NC/AT Oropharynx clear, no erythema, or exudates Neck: Supple, FROM, no masses, or JVD No carotid bruits No thyromegaly Lungs: Clear to auscultation Clear to percussion Normal respiratory effort, no accessory muscle use Cardiovascular: Heart regular in rate and rhythm, No murmurs, gallops, or rubs +3 bilateral peripheral edema Abdominal: Distended abdomen nontender, transmitted thrill is positive Nontender, no guarding, rebound or rigidity Abdomen moving with respiration Normoactive bowel sounds No palpable mass No abdominal wall hernia noted Skin: Normal temperature, tone, texture, turgor No induration No subcutaneous nodules No rash, lesions No ulcers Extremities: No digital cyanosis No clubbing Pedal pulses intact and symmetrical Radial pulses intact and symmetrical No calf tenderness Psychiatric: Alert and oriented to person, place and time Appropriate affect fair judgement Neuro Muscles Strength 3/5 in bilateral lower extremities and 4/5 in bilateral upper extremities Sensation to light touch grossly present throughout Cranial nerves II-XII grossly intact No focal sensory deficits Lymphatics: no palpable cervical or supraclavicular , or inguinal lymph nodes Results CBC & Chem 7: 11/05/20 18:46 11/05/20 18:46 Labs: Abnormal Lab Results - Last 24 Hours (Table) 11/05/20 11/05/20 11/05/20 Range/Units 18:46 18:46 18:46 WBC 15.9 H (3.8-10.6) k/uL MCV 101.0 H (80.0-100.0) fL RDW 18.7 H (11.5-15.5) % Neutrophils # 14.4 H (1.3-7.7) k/uL Lymphocytes # 0.4 L (1.0-4.8) k/uL PT 43.8 H (9.0-12.0) sec INR 4.5 H (<1.2) APTT 33.2 H (22.0-30.0) sec Sodium 125 L (137-145) mmol/L Chloride 94 L (98-107) mmol/L Carbon Dioxide 19 L (22-30) mmol/L BUN 57 H (7-17) mg/dL Creatinine 1.80 H (0.52-1.04) mg/dL Glucose 130 H (74-99) mg/dL Plasma Lactic Acid Jagdish (0.7-2.0) mmol/L Calcium 7.6 L (8.4-10.2) mg/dL Total Bilirubin 11.6 H (0.2-1.3) mg/dL AST 212 H (14-36) U/L ALT 81 H (4-34) U/L Alkaline Phosphatase 938 H (38-126) U/L Albumin 2.2 L (3.5-5.0) g/dL Lipase 342 H (23-300) U/L 11/05/20 Range/Units 18:46 WBC (3.8-10.6) k/uL MCV (80.0-100.0) fL RDW (11.5-15.5) % Neutrophils # (1.3-7.7) k/uL Lymphocytes # (1.0-4.8) k/uL PT (9.0-12.0) sec INR (<1.2) APTT (22.0-30.0) sec Sodium (137-145) mmol/L Chloride (98-107) mmol/L Carbon Dioxide (22-30) mmol/L BUN (7-17) mg/dL Creatinine (0.52-1.04) mg/dL Glucose (74-99) mg/dL Plasma Lactic Acid Jagdish 3.4 H* (0.7-2.0) mmol/L Calcium (8.4-10.2) mg/dL Total Bilirubin (0.2-1.3) mg/dL AST (14-36) U/L ALT (4-34) U/L Alkaline Phosphatase (38-126) U/L Albumin (3.5-5.0) g/dL Lipase (23-300) U/L Assessment and Plan Assessment: Advanced metastatic pancreatic cancer with liver metastases and liver failure Leukocytosis and fever no focal of infection identified at this time Electrolyte imbalance with hyponatremia and he put her renal syndrome and lactic acidosis Plan Supportive care Comfort measures Patient wants to maximize comfort and did not want to take any of her medications tonight except for the ones that maximize comfort I suggested to the patient to get an ultrasound of the abdomen to assess home which ascites she has to consider draining if needed last time she drained was 10 days ago and 2.5 L was removed NING wrapping for bilateral lower extremity edema Consultation to hospice for evaluation collision worker support Xanax for anxiety Lactulose 3 times a day by mouth to help regulate her bowel movement patient's constipated Ammonia level was not checked in the ED patient is not interested in further workup Morphine when necessary for any discomfort and pain Supplemental oxygen if needed Resume levothyroxine for history of hypothyroid CODE STATUS: No code DVT prophylaxis: Patient on Eliquis currently on hold per her request Discussed with: Patient, ER, RN Anticipated length of stay less than than [address]: Home with hospice A total of 75 minutes was spent on the care of this complex patient more than 50% of the time was spent in counseling and care coordination.
[2020-11-06] MEDS: LACTULOSE 20 GM/30 ML CUP PO SCH ×2 (00:04→08:19)
[2020-11-06 02:13] LABS: Appearance,Urine Turbid (Clear); Bacteria,Urine Many /hpf; Bilirubin,Urine 3+ (Negative); Blood,Urine Trace (Negative); Color,Urine Dark Brown; Glucose,Urine (UA) Negative (Negative); Hyaline Casts,Urine 227 /lpf (0-2); Ketones,Urine Negative (Negative); Leukocyte Esterase,Urine Large (Negative); Mucus,Urine Many /hpf; Nitrite,Urine Negative (Negative); Protein,Urine 1+ (Negative); RBC,Urine 4 /hpf (0-5); Squamous Epithelial Cell,Urine 34 /hpf (0-4); Urobilinogen,Urine <2.0 mg/dL (<2.0); WBC,Urine 23 /hpf (0-5)
[2020-11-06] MEDS ORDERED: ONDANSETRON 4 MG/2 ML VIAL IVP PRN (03:47)
[2020-11-06] MEDS ORDERED: LEVOTHYROXINE 112 MCG TAB PO SCH (06:30)
--- NOTE | 2020-11-06 08:55 | US ---
EXAMINATION TYPE: US abdomen limited DATE OF EXAM: 11/06/2020 COMPARISON: NONE CLINICAL HISTORY: ascites. All four quadrants scanned. There is small amount of fluid in all four quadrants. IMPRESSION: Small amount of ascites.
[2020-11-06 12:26] VITALS: BP 96/64; PULSE 89; RESP 14; TEMP 97.8
[2020-11-06] MEDS: SODIUM CHLORIDE 0.9% 1,000 ML IV SCH (12:29)
--- NOTE | 2020-11-06 13:28 | P.DS ---
Providers Date of admission: 11/05/20 20:44 Expected date of discharge: 11/06/20 Attending physician: Becca Price MD Consults: 11/06/20 10:44 Consult Physician Routine Consulting Provider: Yohannes Salgado Consult Reason/Comments: Paracentesis Do you want consulting provider notified?: Yes Primary care physician: [facility] Course: 70-year-old female with history of thyroid cancer, hypothyroid Patient recently diagnosed with metastatic pancreatic cancer back in May 2020 she receives chemotherapy after that however upon follow-up with imaging cancer to progress and patient was not showing any signs of improvement. Today she is coming in for deep jaundice and feeling tired. She is accompanied by both her daughters. After getting initial blood work in talking to the patient seems like they're interested in hospice care. She was trying to enroll in the trial medication for treatment however she did not qualify. Her blood work today showed leukocytosis no anemia INR 4.5 elevated bilirubin of 11.6 elevated AST and he'll T lactic acid of 3.4 patient denies any active bleeding Electrolytes showed acidosis with acute kidney injury and hyponatremia I reviewed imaging that was done this year MRI of the brain in July 2020 showed no brain metastases September 2020 CT of the abdomen showed multiple hepatic metastatic lesions ascites left hydro-process/cyst Patient currently denies any abdominal pain trouble breathing or chest pain denies any dizziness or lightheadedness she is only complaining of nausea and poor by mouth intake she is also constipated and passes bowel movement once every couple days Patient and her daughters are very interested in talking to hospice care and hoping that she ca go home tomorrow with hospice She had paracentesis done about 10 days ago and liters of fluid was drained Advanced metastatic pancreatic cancer with liver metastases and liver failure Leukocytosis and fever no focal of infection identified at this time Electrolyte imbalance with hyponatremia and he put her renal syndrome and lactic acidosis Patient wanted to maximize comfort focused care, she did not want to take any more meds that would not be in line with this goal. Patient was referred to [facility] and discharged home without complications of hospital course. She did undergo Abd US which showed pockets of drainable fluid, however, due to elevated INR, this procedure would be delayed while she was in house. She opted to have this procedure scheduled as an outpatient at a future date. D/c home with hospice. Assessment: Gen: awake, alert HEENT: normocephalic, atraumatic, good hearing acuity, moist mucous membranes Resp: good air exchange, breathing comfortably with no accessory muscle use, CTAB CVS: good distal perfusion x 4, RRR, no murmurs GI: distended, +fluid thrill, tense : no SPT, no CVAT, hart catheter not present MSK: no pitting edema, no clubbing, +diffuse jaundice Neuro: non-focal, moving all extremities Psych: cooperative, euthymic mood Patient Condition at Discharge: Good Plan - Discharge Summary Discharge Rx Participant: Yes New Discharge Prescriptions: New Lactulose [Cephulac] 10 gm PO QID PRN #1800 ml PRN Reason: Constipation HYDROcodone/APAP 5-325MG [Jackson 5-325] 1 tab PO Q4HR PRN 3 Days #18 tab PRN Reason: Pain Continue Sertraline [Zoloft] 25 mg PO DAILY ALPRAZolam [Xanax] 0.5 mg PO TID Levothyroxine Sodium [Synthroid] 125 mcg PO DAILY Lipase/Protease/Amylase [Creon Dr 12,000 Units Capsule] 1 cap PO TID-W/MEALS Prochlorperazine [Compazine] 10 mg PO Q6H PRN PRN Reason: Nausea Discontinued Ergocalciferol (Vitamin D2) [Vitamin D2] 50,000 unit PO Q7D Apixaban [Eliquis] 5 mg PO BID Discharge Medication List Sertraline [Zoloft] 25 mg PO DAILY 01/24/19 [History] ALPRAZolam [Xanax] 0.5 mg PO TID 05/28/20 [History] Levothyroxine Sodium [Synthroid] 125 mcg PO DAILY 11/05/20 [History] Lipase/Protease/Amylase [Creon Dr 12,000 Units Capsule] 1 cap PO TID-W/MEALS 11/05/20 [History] Prochlorperazine [Compazine] 10 mg PO Q6H PRN 11/05/20 [History] HYDROcodone/APAP 5-325MG [Jackson 5-325] 1 tab PO Q4HR PRN 3 Days #18 tab 11/06/20 [Rx] Lactulose [Cephulac] 10 gm PO QID PRN #1800 ml 11/06/20 [Rx] Follow up Appointment(s)/Referral(s): Neena Landeros MD [Primary Care Provider] - 1-2 days Patient Instructions/Handouts: Hydrocodone/Acetaminophen (By mouth), Lactulose (By mouth), Hospice (DC) Discharge Disposition: HOME WITH HOSPICE
[2020-11-06 13:41] VITALS: BMI 27.6
== END 2020-11-06 13:40 | disposition hospice, home (50) | DRG 683 ==
LOC: EC 16:32 → 5NMEDONC 20:44
PROVIDERS: ADMIT Internal Medicine; ATTEND Internal Medicine
DX: N17.9 Acute kidney failure, unspecified (principal); E87.1 Hypo-osmolality and hyponatremia; C78.7 Secondary malignant neoplasm of liver and intrahepatic bile duct; E87.2 Acidosis; R18.0 Malignant ascites; C25.9 Malignant neoplasm of pancreas, unspecified; K72.90 Hepatic failure, unspecified without coma; R50.9 Fever, unspecified; R60.0 Localized edema; D72.829 Elevated white blood cell count, unspecified; E86.0 Dehydration; E89.0 Postprocedural hypothyroidism; I83.90 Asymptomatic varicose veins of unspecified lower extremity; F41.9 Anxiety disorder, unspecified; K59.00 Constipation, unspecified; Z66 Do not resuscitate; Z20.822 Contact with and (suspected) exposure to COVID-19; Z51.5 Encounter for palliative care; Z98.42 Cataract extraction status, left eye; Z98.41 Cataract extraction status, right eye; Z79.01 Long term (current) use of anticoagulants; Z79.890 Hormone replacement therapy; Z79.899 Other long term (current) drug therapy; Z85.850 Personal history of malignant neoplasm of thyroid; Z90.710 Acquired absence of both cervix and uterus
CPT/HCPCS: 36415; 76705; 80053; 81001; 82150; 82550; 83605; 83690; 85025; 85610; 85730; 86850; 86900; 86901; 87635; 96360; 99285